=== PATIENT | female | born 1995 | race Caucasian/White ===

== ENCOUNTER 2016-09-09 11:06 | Emergency (ER) | payer BC ==
--- NOTE | 2016-09-09 11:42 | EDM.PDOC ---
ED HPI GENERAL MEDICAL PROBLEM - General Chief Complaint: Back Pain or Injury Stated Complaint: BACK PAIN Time Seen by Provider: 09/09/16 11:25 Source of Information: Reports: Patient, RN Notes Reviewed - History of Present Illness INITIAL COMMENTS - FREE TEXT/NARRATIVE: 20-year-old female comes in with right low back pain. She's been doing a lot of lifting with her 2 jobs. The pain today is much worse. It is worse with motion. She does have some radiation down to the right that out.. No peripheral numbness or tingling. She has been taking some ibuprofen but that has not helped. No recent fall. No voiding symptoms Lower Back Pain Score (Numeric/FACES): 3 - Related Data Allergies Allergy/AdvReac Type Severity Reaction Status Date / Time No Known Allergies Allergy Verified 09/09/16 11:23 Home Meds: Home Meds Hydrocodone/Acetaminophen [[place] 5-325] 1 tab PO Q6HR PRN #10 tablet 09/09/16 [ Rx] Naproxen [Naprosyn] 500 mg PO Q12HR #14 tablet 09/09/16 [Rx] Past Medical History - Past Health History Medical/Surgical History: Denies Medical/Surgical History Social & Family History - Tobacco Use Smoking Status *Q: Never Smoker Second Hand Smoke Exposure: No - Caffeine Use Caffeine Use: Reports: Coffee, Soda - Recreational Drug Use Recreational Drug Use: No ED ROS GENERAL - Review of Systems Review Of Systems: See Below Constitutional: Denies: Fever, Chills, Diaphoresis HEENT: Reports: No Symptoms Respiratory: Denies: Shortness of Breath Cardiovascular: Denies: Chest Pain GI/Abdominal: Denies: Abdominal Pain, Nausea, Vomiting : Reports: No Symptoms Musculoskeletal: Reports: Back Pain Skin: Reports: No Symptoms ED EXAM,LOWER BACK PAIN/INJURY - Physical Exam Exam: See Below General Appearance: Alert, Moderate Distress Throat/Mouth: Normal Inspection Head: Atraumatic. No: Facial Swelling Neck: Supple, Full Range of Motion Respiratory/Chest: No Respiratory Distress, Lungs Clear Cardiovascular: Regular Rate, Rhythm GI/Abdominal: Non-Tender Back Exam: Paraspinal Tenderness. No: CVA Tenderness (L), CVA Tenderness (R) Extremities: Normal Inspection, Normal Range of Motion (Right low back) Neurological: Alert, No Motor/Sensory Deficits, Oriented x 3 Skin Exam: Warm, Dry, Normal Color Course - Vital Signs Last Recorded V/S: Last Vital Signs Temp 97.7 F 09/09/16 11:19 Pulse 70 09/09/16 11:19 Resp 18 09/09/16 11:19 BP 140/86 09/09/16 11:19 Pulse Ox 99 09/09/16 11:19 Departure - Departure Time of Disposition: 11:38 Disposition: Home, Self-Care 01 Condition: Fair Clinical Impression: Low back strain Qualifiers: Encounter type: initial encounter Qualified Code(s): S39.012A - Strain of muscle, fascia and tendon of lower back, initial encounter - Discharge Information Prescriptions: Hydrocodone/Acetaminophen [[place] 5-325] 1 tab PO Q6HR PRN #10 tablet PRN Reason: Pain Naproxen [Naprosyn] 500 mg PO Q12HR #14 tablet Referrals: PCP,None [Primary Care Provider] - Forms: ED Department Discharge, Return to Work/School Form Additional Instructions: rest back, no lifting more than 20 pounds recommended for the next 5 days, alternate ice and heat as needed, Naprosyn 500 mg twice daily, Tylenol in between doses up to 3 times daily for extra pain relief or hydrocodone if needed for severe pain, do not take Tylenol and hydrocodone at the same time, follow-up clinic if not much better within 3-4 days as expected
== END 2016-09-09 11:48 | disposition home or self-care (01) ==
LOC: JD.ED 11:06
CPT/HCPCS: 99283

== ENCOUNTER 2017-06-27 06:59 | Inpatient (IN) | payer BC ==
[2017-06-27] MEDS ORDERED: Citric Acid/Sodium Citrate Solution 30 ML Cup PO ONE (09:06)
[2017-06-27] MEDS ORDERED: Metoclopramide 10 MG/2 ML SDV IVPUSH ONE (09:06)
[2017-06-27] MEDS ORDERED: Sodium Chloride 0.9% 10 ML Syringe FLUSH PRN (09:06)
[2017-06-27] MEDS ORDERED: ceFAZolin 2 GM in Premix Bag 1 BAG IV ONE (09:06)
[2017-06-27] MEDS ORDERED: Lactated Ringers 1,000 ML IV SCH (09:15)
--- NOTE | 2017-06-27 09:26 | PCM.LDHP ---
L&D History of Present Illness - General Date of Service: 06/27/17 Admit Problem/Dx: Patient Status Order with Admit Dx/Problem 06/27/17 09:07 Patient Status [ADT] Routine Admission Diagnosis/Problem Admission Diagnosis/Problem complications 06/27/17 09:13 39-6/7 week intrauterine , breech presentation, large pelvic cysts 2 Source of Information: Patient History Limitations: Reports: No Limitations - History of Present Illness Introduction:: Patient is a 21-year-old 1 para 0 white female who is seen in labor and delivery for induction of labor but is found to have a breech presenting baby. Ultrasound confirms head in the right upper quadrant with buttocks and left lower quadrant. Difficult to assess whether it is a sheila breech or a double footling breech. The patient is noted to have 2 very large cysts in the 16-17 cm size felt to originate in the pelvis and of been present throughout the . They appear simple and benign in nature. The intention was for her to be induced this a.m. but because of the breech presentation discussion is held with patient as to proceeding with a primary lower uterine segment transverse section through Pfannenstiel skin incision under spinal block. We will approach the cysts as indicated by their appearance at the time with possible drainage or surgical excision of the cysts and/or unilateral ovary or ovaries. The procedure, risks, benefits, alternatives of care and follow-up were discussed in detail patient. She appears to understand and wishes to proceed. Consent signed FIBER ANALYST history: 1 para 0. GRICELDA is 06/28/2017 is based upon an early ultrasound done on 12/01/2016 at 10 weeks gestational age. She has had at least for other ultrasounds which is supported by first ultrasound dating. Her course is actually been very unremarkable considering the size of the cysts. They have been relatively asymptomatic. The initial plan was to evaluate cysts and treat after the was finished. Her weight gain has been from approximately 285-318 pounds. Vital signs stable throughout the course. The cysts have been found to be stable on multiple evaluations. Laboratory testing in include a blood type A+. Antibody screen is negative. Hemoglobin is 13.0 and platelets were 303,000 on first visit. Palpitations immunity. RPR is nonreactive. Hepatitis B surface antigen and HIV assays were both negative. GC assay was negative. Chlamydia was positive for an patient and her partner were both treated with a negative test of cure. Her group B strep screen is negative. Her second trimester labs included a hemoglobin which is normal at 12.3 g deciliter and platelets normal at 254,000. Her 1 hour GTT was 91. Allergies: None medications: None Past medical history: Unremarkable. Family history: 2 sisters and 2 brothers are alive and well. Mother is age 55 and well with the exception of some osteoarthritis. Father is 55 and has history of diabetes, hyperlipidemia, hypertension and a history of an PR. Maternal grandmother is secondary to melanoma but history of diabetes also. Maternal grandfather secondary to an PR. Paternal grandmother secondary diabetes, had leg amputation from complications. Also had MIs. Paternal grandfather secondary skin cancer Social history: Patient is , lives in [place]. Does not work outside the home. Her is Francine Warren. Denies any [place] alcohol, drugs or tobacco. Review of systems: General patient is feeling fine. No pain noted. Baby's been active Skin negative Cardiovascular: No chest pain or exercise intolerance Respiratory: No shortness of breath or infectious symptoms Breasts: Negative GI: Negative : Changes as described above secondary to and cysts. Musculoskeletal: Negative Neurological: Negative Physical exam: In general the patient is well-developed well-nourished massively obese white female in no acute distress. She is alert and oriented 3 and appears stated age. She is a good historian. Skin is warm and dry without lesions. HEENT, neck and back within normal limits. Breasts are not evaluated. Lungs are clear with good breath sounds in all lung mims. Cardiovascular exam shows regular rate and rhythm without murmurs Abdomen shows fundal height on last evaluation clinic to be consistent with 49 cm Cervical exam shows 2 cm, -4 station and very soft, mid position Extremities and neurological exam shows 1+ pitting edema otherwise unremarkable - Related Data Allergies/Adverse Reactions: Allergies Allergy/AdvReac Type Severity Reaction Status Date / Time No Known Allergies Allergy Verified 09/09/16 11:23 Home Medications: Home Meds Hydrocodone/Acetaminophen [[place] 5-325] 1 tab PO Q6HR PRN #10 tablet 09/09/16 [ Rx] Naproxen [Naprosyn] 500 mg PO Q12HR #14 tablet 09/09/16 [Rx] Past Medical History - Past Health History Medical/Surgical History: Denies Medical/Surgical History Social & Family History - Tobacco Use Smoking Status *Q: Never Smoker Second Hand Smoke Exposure: No - Caffeine Use Caffeine Use: Reports: Coffee, Soda - Recreational Drug Use Recreational Drug Use: No H&P Review of Systems - Review of Systems: Review Of Systems: See Below L&D Exam - Exam Exam: See Below Problem List Initiated/Reviewed/Updated: Yes Orders Last 24hrs: Active Orders 24 hr Category Date Time Status Patient Status [ADT] Routine ADT 06/27/17 09:07 Ordered Communication Order [RC] ROUTINE Care 06/27/17 09:07 Ordered Heart Tones [RC] PER UNIT ROUTINE Care 06/27/17 09:07 Ordered Peripheral IV Care [RC] . DIRECTED Care 06/27/17 09:10 Ordered Procedure Site Prep Instruct [RC] ASDIRECTED Care 06/27/17 09:07 Ordered Verify Patient Consent Obtain [RC] PER UNIT ROUTINE Care 06/27/17 09:07 Ordered Vital Signs [RC] PFP Care 06/27/17 09:07 Ordered CBC WITH AUTO DIFF [HEME] Stat Lab 06/27/17 09:06 Ordered TYPE AND SCREEN [BBK] Routine Lab 06/27/17 09:07 Ordered Citric Acid/Sodium Citrate [Bicitra Solution] Med 06/27/17 09:06 Once 30 ml PO ONETIME ONE Lactated Ringers @ 125 MLS/HR(1000ml) Med 06/27/17 09:15 Ordered Lactated Ringers [Ringers, Lactated] 1,000 ml IV ASDIRECTED Metoclopramide [Reglan] Med 06/27/17 09:06 Once 10 mg IVPUSH ONETIME ONE Sodium Chloride 0.9% [Saline Flush] Med 06/27/17 09:06 Ordered 10 ml FLUSH ASDIRECTED PRN ceFAZolin [Ancef] 2 gm Med 06/27/17 09:06 Ordered Premix Bag 1 bag IV ONETIME Peripheral IV Insertion Adult [OM.PC] Routine Oth 06/27/17 09:07 Ordered Schedule Procedure [COMM] Per Unit Routine Oth 06/27/17 09:07 Ordered Resuscitation Status Routine Resus Stat 06/27/17 09:06 Ordered Assessment/Plan Comment:: Assessment: 1.39 and 6/7 week intrauterine , breech presentation 2. History of very large cysts 2-simple in nature, benign in appearance and asymptomatic present throughout the entire 3. Risk factors for surgery included a history of the pelvic cysts, massive obesity, breech presentation, short stature 4. Rh+ 5. Rubella immune. 6. Undecided as to breast-feeding 7. Group B strep negative Plan: 1. Primary lower uterine segment transverse section and possible excision of, drainage of pelvic cysts, possible ovarian cystectomy or oophorectomy unilateral or bilateral through Pfannenstiel skin incision under regional block discussed in detail with patient.. Procedure, risks, benefits, alternatives of care including attempt at vaginal delivery discussed in detail the patient. She presents to understand and wishes to proceed and have signed consent. 2. DVT prophylaxis SCDs 3. Infection prophylaxis Ancef 3 g IV 4. CBC, type and screen preoperatively. 5. Pediatrics to be in attendance at time section
--- NOTE | 2017-06-27 09:46 | PCM.PREANE ---
Preanesthetic Assessment - Procedure Proposed Procedure: Primairy CSection for Breech presentation - Anesthesia/Transfusion/Family Hx Anesthesia History: No Prior Anesthesia Family History of Anesthesia Reaction: No Transfusion History: No Prior Transfusion(s) Intubation History: Unknown - Review of Systems General: No Symptoms Pulmonary: No Symptoms Cardiovascular: No Symptoms Gastrointestinal: No Symptoms Neurological: No Symptoms Other: Reports: None - Physical Assessment NPO Status Date: 06/27/17 NPO Status Time: 06:30 (PB&J at 0630) Pulse: 96 O2 Sat by Pulse Oximetry: 98 Respiratory Rate: 18 Blood Pressure: 118/73 Temperature: 36.6 C Height: 1.55 m Weight: 146.51 kg ASA Class: 2 Mental Status: Alert & Oriented x3 Airway Class: Mallampati = 3 Dentition: Reports: Normal Dentition Thyro-Mental Finger Breadths: 3 Mouth Opening Finger Breadths: 3 ROM/Head Extension: Full Lungs: Clear to Auscultation, Normal Respiratory Effort Cardiovascular: Regular Rate, Regular Rhythm - Lab Values: Laboratory Last Values WBC 8.96 K/mm3 (3.98-10.04) 06/27/17 07:30 RBC 4.21 M/mm3 (3.98-5.22) 06/27/17 07:30 Hgb 11.8 gm/L (11.2-15.7) 06/27/17 07:30 Hct 35.6 % (34.1-44.9) 06/27/17 07:30 MCV 84.6 fl (79.4-94.8) 06/27/17 07:30 MCH 28.0 pg (25.6-32.2) 06/27/17 07:30 MCHC 33.1 g/dl (32.2-35.5) 06/27/17 07:30 RDW Std Deviation 42.0 fL (36.4-46.3) 06/27/17 07:30 Plt Count 257 K/mm3 (182-369) 06/27/17 07:30 MPV 10.0 fl (9.4-12.3) 06/27/17 07:30 Neut % (Auto) 69.9 % (34.0-71.1) 06/27/17 07:30 Lymph % (Auto) 18.6 % (19.3-51.7) L 06/27/17 07:30 [place] % (Auto) 10.2 % (4.7-12.5) 06/27/17 07:30 Eos % (Auto) 0.7 (0.7-5.8) 06/27/17 07:30 Baso % (Auto) 0.2 % (0.1-1.2) 06/27/17 07:30 Neut # (Auto) 6.26 K/mm3 (1.56-6.13) H 06/27/17 07:30 Lymph # (Auto) 1.67 K/mm3 (1.18-3.74) 06/27/17 07:30 [place]ruff # (Auto) 0.91 K/mm3 (0.24-0.36) H 06/27/17 07:30 Eos # (Auto) 0.06 K/mm3 (0.04-0.36) 06/27/17 07:30 Baso # (Auto) 0.02 K/mm3 (0.01-0.08) 06/27/17 07:30 - Allergies Allergies/Adverse Reactions: Allergies Allergy/AdvReac Type Severity Reaction Status Date / Time No Known Allergies Allergy Verified 09/09/16 11:23 - Blood Blood Available: No Product(s) Available: None - Anesthesia Plan Pre-Op Medication Ordered: None - Acknowledgements Anesthesia Type Planned: Spinal (with duramorph) Pt an Appropriate Candidate for the Planned Anesthesia: Yes Alternatives and Risks of Anesthesia Discussed w Pt/Guardian: Yes Pt/Guardian Understands and Agrees with Anesthesia Plan: Yes PreAnesthesia Questionnaire - Past Health History Medical/Surgical History: Denies Medical/Surgical History - SUBSTANCE USE Smoking Status *Q: Never Smoker Second Hand Smoke Exposure: No Recreational Drug Use History: No - HOME MEDS Home Medications: Home Meds Hydrocodone/Acetaminophen [[place] 5-325] 1 tab PO Q6HR PRN #10 tablet 09/09/16 [ Rx] Naproxen [Naprosyn] 500 mg PO Q12HR #14 tablet 09/09/16 [Rx] - CURRENT (IN HOUSE) MEDS Current Meds: Current Medications Lactated Ringer's (Ringers, Lactated) 1,000 mls @ 125 mls/hr IV ASDIRECTED NOLBERTO Sodium Chloride (Saline Flush) 10 ml FLUSH ASDIRECTED PRN PRN Reason: Keep Vein Open Discontinued Medications Citric Acid/Sodium Citrate (Bicitra Solution) 30 ml PO ONETIME ONE Stop: 06/27/17 09:07 Cefazolin Sodium/Dextrose 2 gm (/ Premix) 50 mls @ 100 mls/hr IV ONETIME ONE Stop: 06/27/17 09:35 Metoclopramide HCl (Reglan) 10 mg IVPUSH ONETIME ONE Stop: 06/27/17 09:07
[2017-06-27] MEDS ORDERED: Oxytocin 10 Units/1 ML SDV ONE (09:59)
[2017-06-27] MEDS ORDERED: Morphine PF 10 MG/10 ML SDV ONE (09:59)
[2017-06-27] MEDS ORDERED: Ondansetron 4 MG/2 ML SDV ONE (09:59)
[2017-06-27] MEDS ORDERED: ceFAZolin 1 GM Vial ONE ×2 (10:00)
[2017-06-27] MEDS ORDERED: Bupivacaine 0.75% 30 ML SDV ONE (10:13)
[2017-06-27] MEDS ORDERED: 50% Dextrose in Water 50 ML SDV ONE (10:15)
[2017-06-27] MEDS ORDERED: Bupivacaine 0.5% 30 ML SDV ONE (10:59)
[2017-06-27] MEDS ORDERED: Lidocaine 1% 2 ML ONE (12:07)
[2017-06-27] MEDS ORDERED: Lactated Ringers 1,000 ML ONE ×3 (12:52)
[2017-06-27] MEDS ORDERED: Phenylephrine/Normal Saline 100 MCG/ML 10 ML Syringe ONE (12:55)
[2017-06-27] MEDS ORDERED: Ketorolac 30 MG/ML SDV ONE (12:55)
[2017-06-27] MEDS ORDERED: diphenhydrAMINE 50 MG/ML SDV IVPUSH PRN ×2 (13:42→14:57)
[2017-06-27] MEDS ORDERED: fentaNYL 100 MCG/2 ML SDV IVPUSH PRN (13:42)
--- NOTE | 2017-06-27 13:44 | PCM.POSTAN ---
POST ANESTHESIA ASSESSMENT - MENTAL STATUS Mental Status: Alert, Oriented - VITAL SIGNS Pulse Rate: 64 SaO2: 98 Resp Rate: 12 Blood Pressure: 110/57 Temperature: 36.6 C - RESPIRATORY Respiratory Status: Respiratory Rate WNL, Airway Patent, O2 Saturation Stable, Supplemental Oxygen - CARDIOVASCULAR CV Status: Pulse Rate WNL, Blood Pressure Stable - GASTROINTESTINAL GI Status: No Symptoms - PAIN Pain Score: 0 - POST OP HYDRATION Hydration Status: Adequate & Stable - OBSERVATIONS Free Text/Narrative:: no anesthesia complications noted
[2017-06-27] MEDS ORDERED: Dextrose 5%-Lactated Ringers 1,000 ML IV SCH (14:57)
[2017-06-27] MEDS ORDERED: Naloxone 0.4 MG/ML SDV IVPUSH PRN (14:57)
[2017-06-27] MEDS ORDERED: Ondansetron 4 MG/2 ML SDV IV PRN (14:57)
[2017-06-27] MEDS ORDERED: Lanolin 100% Cream 7 GM Tube TOP PRN (14:57)
[2017-06-27] MEDS ORDERED: ePHEDrine 50 MG/ML SDV IVPUSH PRN (14:57)
[2017-06-27] MEDS: Prenatal Multivitamin with Calcium/Folic Acid/Iron Tab PO SCH (15:26)
[2017-06-27] MEDS: Simethicone 80 MG Tab.Chew PO SCH ×2 (18:11→21:59)
[2017-06-27] MEDS ORDERED: Ibuprofen 800 MG Tab PO SCH (19:30)
[2017-06-27] MEDS: Docusate Sodium 100 MG Cap PO PRN (21:55)
[2017-06-27] MEDS: Ibuprofen 800 MG Tab PO SCH ×2 (22:55→22:57)
[2017-06-28] MEDS: Ibuprofen 800 MG Tab PO SCH ×3 (06:30→22:07)
--- NOTE | 2017-06-28 06:56 | PCM.SN ---
- Free Text/Narrative Note: Postoperative day one: Patient doing well. Pain under reasonable control. Patient is afebrile, vital signs stable. Lungs are clear with good breath sounds in all lung mims Cardiovascular exam shows regular rate and rhythm. Abdomen is obese, soft, nontender. Incision is intact, recently dry. It is intact. Legs essentially nontender with minimal edema Assessment: Postoperative day one the recovery Plan: Increase diet, activity, DC IV, continue SCDs while in bed, CBC today is within normal limits for post operative..
--- NOTE | 2017-06-28 09:10 | PCM48HPAN ---
Post Anesthesia Note - EVALUATION WITHIN 48HRS OF ANESTHETIC Vital Signs in Normal Range: Yes Patient Participated in Evaluation: Yes Respiratory Function Stable: Yes Airway Patent: Yes Cardiovascular Function Stable: Yes Hydration Status Stable: Yes Pain Control Satisfactory: Yes Nausea and Vomiting Control Satisfactory: Yes Mental Status Recovered: Yes
--- NOTE | 2017-06-28 10:41 | PCM.OPNOTE ---
- General Post-Op/Procedure Note Date of Surgery/Procedure: 06/27/17 Operative Procedure(s): Primary lower uterine segment transverse section with left salpingo-oophorectomy Findings: Term intrauterine , double footling breech presentation, clear amniotic fluid, massive left ovarian cyst 2 measuring in largest dimension 17 cm. Right ovary was within normal limits, as was the right fallopian tube. Pre Op Diagnosis: 1. 30 967 week intrauterine , double footling breech presentation 2. massive ovarian cysts 2 Post-Op Diagnosis: Same-cysts are of left ovarian etiology Anesthesia Technique: Spinal Other Anesthesia Type: Marcaine 0.5%20 mL total Primary Surgeon: Dexter Spears Secondary Surgeon: Marco A Mathews Anesthesia Provider: Lang Mejia House Servant: Tulio Horta Pathology: Left fallopian tube and ovary Fluid Replacement, Intraop: 3,400 Output, Urine Amount: 30 EBL in mLs: 600 Drain/Tube Comments:: Indwelling bladder catheter Complications: None Condition: Good Free Text/Narrative:: Intake & Output 06/27/17 06/28/17 06/28/17 22:59 06:59 14:59 Intake Total 2950 Output Total 500 2590 Balance 2450 -2590 Surgery duration: 47 minutes Male born 1246 hrs. on 06/28/2006, Apgars 8 and 9, 3130 g, 6 lbs. 14 oz. Procedure: Patient was transferred to the room and placed in a sitting position. Spinal anesthesia was administered. After confirmation of adequate anesthesia patient was placed in a supine position with a wedge under her right side to facilitate left lateral positioning. The patient was prepped and draped in usual fashion and Pizarro catheter was placed . The anesthetic was checked and found to be adequate. 20 mL of Marcaine 0.5% was injected locally in the Pfannenstiel incision site. The Pfannenstiel skin incision was then made carried down to skin subcutaneous and fascial layers. The fascia was then undermined superiorly and inferiorly to allow for adequate operating room the recti muscles midline and preperitoneal fat was bluntly dissected. Peritoneal cavity was entered longitudinally. The vesicouterine peritoneum was then incised transversely and bladder flap was developed. Myometrium was incised transversely to the level of the amniotic sac. This incision was extended bilaterally in a blunt fashion. The amniotic sac was then ruptured resulting clear amniotic fluid. A hand is placed in the low uterine segment and the baby's feet was brought forth through the incision. The baby was completely delivered using fundal pressure and complete breech extraction with routine technique. The nose and mouth were bulb suctioned. Baby's cord was clamped x2 cut and baby was handed off to attending avionics electrical engineer Dr Matthews. Placenta was expressed after cord blood was obtained The cervix was assessed and found to be dilated adequately to allow egress of blood. The uterus was closed in 2 layers. Because of the patient's massive obesity and body habitus the uterus was left in the pelvis and the uterine incision was closed. The first layer was a running locked suture of 0 Monocryl, the second layer a running locked vertical mattress suture of 0 Monocryl. [id number] suture was placed at the left incision to control 1 bleeder. Hemostasis confirmed at this time. Patient had been noted to have 2 very large cysts which on evaluation at the time of surgery were noted to be massive uterine cysts arising from the left ovary. They were connected to the uterus via the ovarian ligament and the fallopian tube intimately attached to them. The first cyst was approximate 17 cm in its greatest dimension and was immediately connected at the distal end to a second cyst which was somewhat smaller and approximately 15 cm. These cysts were aligned in series and were then brought out through the abdominal wall incision. The right ovary was noted to be within normal limits as was the right fallopian tube. Decision was made to remove the ovary on the left side along with the distal fallopian tube. 2 Sophie clamps were placed across the fallopian tube/ ovarian ligament/ broad ligament pedicle and the masses were removed intact. There is sent for histologic evaluation hemostasis was confirmed at this time. Sponge instrument needle counts are correct. The lateral gutters were cleared of blood. Once again sponge needle counts are correct. The anterior abdominal wall was closed with a #1 PDS suture from angle to angle. The subcutaneous area was found to be free of any bleeders. interrupted sutures of 3-0 Monocryl were used to reapproximate the subcutaneous layer.Skin was closed with a running subcuticular stitch of 3-0 Monocryl in a vertical mattress suture fashion using a Harris needle. Prineo mesh/glue was then applied to further approximate the incision. It should be noted that patient received 3 g of Ancef preoperatively for infection prophylaxis and had Pitocin infused after delivery of the placenta to facilitate uterine contraction. She also had sequential compression stockings in place for DVT prophylaxis. Patient was discharged from the operating room in satisfactory condition.
[2017-06-28] MEDS: Simethicone 80 MG Tab.Chew PO SCH ×4 (11:13→22:07)
[2017-06-28] MEDS: Acetaminophen/oxyCODONE 325-5 MG Tab PO PRN ×3 (11:14→23:23)
[2017-06-28] MEDS: Prenatal Multivitamin with Calcium/Folic Acid/Iron Tab PO SCH (11:19)
[2017-06-29] MEDS: Acetaminophen/oxyCODONE 325-5 MG Tab PO PRN ×2 (04:37→09:01)
[2017-06-29] MEDS: Docusate Sodium 100 MG Cap PO PRN (04:38)
--- NOTE | 2017-06-29 06:00 | PCM.DCSUM1 ---
Discharge Summary - Hospital Course Free Text/Narrative:: Yanet is a 21-year-old 1 now para 1001 white female who underwent a primary lower uterine segment transverse section on 06/27/2017 for double footling breech presentation. She is 39-6/7 weeks gestational age with an GRICELDA of 06/28/2017. Patient had been noted throughout the from the time of her initial OB ultrasound to have very large cysts which were felt to be pelvic and most probably ovarian in origin. Patient had been scheduled for an induction of labor but was found to have a reach presenting baby. section was decided upon. Decision was to attempt to resolve the pelvic cyst concern at the time section. Patient was advised as to the procedure, risks, benefits, follow-up. She also the consent. Please see operative report for details. She delivered a viable, parker, with Apgars of 8 and 9. Postoperatively patient has done very well. She is ambulating well, she is bottlefeeding. She is voiding without concerns. Incision appears to be healing well, is dry and intact. Desiring discharge home hospital today. - Discharge Data Discharge Date: 06/29/17 Discharge Disposition: Home, Self-Care 01 Condition: Good - Patient Summary/Data Operative Procedure(s) Performed: Primary lower uterine segment transverse section with left salpingo-oophorectomy - Patient Instructions Diet: Regular Diet as Tolerated Activity: As Tolerated (No intercourse or tampons until seen back. No lifting greater than 15 pounds or driving a car 1 week) Driving: Do Not Drive Showering/Bathing: May Shower Wound/Incision Care: Keep Operative Site/Wound Site Clean and Dry Notify Provider of: Fever, Increased Pain, Swelling and Redness, Nausea and/or Vomiting - Discharge Plan Home Medications: Home Meds Acetaminophen/oxyCODONE [Percocet 325-5 MG] 2 tab PO Q4H PRN tablet 06/29/17 [ Rx] Ibuprofen [IJD: Ibuprofen] 800 mg PO Q8H tablet 06/29/17 [Rx] - Discharge Summary/Plan Comment DC Time >30 min.: No Discharge Summary/Plan Comment: Discharge instructions: 1. Discharge home 2. Diet, activity and follow-up discussed with patient. Recommend nursing diet with increased calories and calcium. 3. Precautions given concern increased pain, bleeding, temperature, signs/ symptoms of DVT/PE. 4. Medications per home medication was printed, discussed with and given to the patient. 5. Return to clinic-Dr. Spears[facility] in 2 weeks. Diagnosis: Term -delivered Condition: Good - Patient Data Vitals - Most Recent: Last Vital Signs Temp 36.4 C 06/29/17 04:42 Pulse 72 06/29/17 04:42 Resp 15 06/29/17 04:42 BP 132/90 06/29/17 04:42 Pulse Ox 97 06/29/17 04:42 Weight - Most Recent: 146.51 kg I&O - Last 24 hours: Intake & Output 06/28/17 06/28/17 06/29/17 14:59 22:59 06:59 Intake Total 300 0 3400 Output Total 1100 30 Balance -800 0 3370 Lab Results - Last 24 hrs: Laboratory Results - last 24 hr 06/28/17 Range/Units 06:20 WBC 9.18 (3.98-10.04) K/mm3 RBC 3.97 L (3.98-5.22) M/mm3 Hgb 11.1 L (11.2-15.7) gm/L Hct 34.0 L (34.1-44.9) % MCV 85.6 (79.4-94.8) fl MCH 28.0 (25.6-32.2) pg MCHC 32.6 (32.2-35.5) g/dl RDW Std Deviation 42.9 (36.4-46.3) fL Plt Count 215 (182-369) K/mm3 MPV 9.6 (9.4-12.3) fl Neut % (Auto) 71.9 H (34.0-71.1) % Lymph % (Auto) 17.5 L (19.3-51.7) % [place] % (Auto) 9.6 (4.7-12.5) % Eos % (Auto) 0.4 L (0.7-5.8) Baso % (Auto) 0.2 (0.1-1.2) % Neut # (Auto) 6.59 H (1.56-6.13) K/mm3 Lymph # (Auto) 1.61 (1.18-3.74) K/mm3 [place] # (Auto) 0.88 H (0.24-0.36) K/mm3 Eos # (Auto) 0.04 (0.04-0.36) K/mm3 Baso # (Auto) 0.02 (0.01-0.08) K/mm3 Med Orders - Current: Current Medications Diphenhydramine HCl (Benadryl) 25 mg IVPUSH Q6H PRN PRN Reason: Itching Last Admin: 06/27/17 21:58 Dose: 25 mg Diphenhydramine HCl (Benadryl) 25 mg IVPUSH Q6H PRN PRN Reason: Itching or Nausea Docusate Sodium (Colace) 100 mg PO Q12H PRN PRN Reason: Constipation Last Admin: 06/29/17 04:38 Dose: 100 mg Emollient Ointment (Lansinoh Hpa) 0 gm TOP ASDIRECTED PRN PRN Reason: Sore Nipples Ephedrine Sulfate (Ephedrine Sulfate) 5 mg IVPUSH SEECOMMENT PRN PRN Reason: Other Fentanyl (Sublimaze) 50 mcg IVPUSH Q5M PRN PRN Reason: PAIN Ibuprofen (Motrin) 800 mg PO Q8H [facility] Last Admin: 06/28/17 22:07 Dose: 800 mg Naloxone HCl (Narcan) 0.1 mg IVPUSH SEECOMMENT PRN PRN Reason: Respiratory Depression Ondansetron HCl (Zofran) 4 mg IV Q4H PRN PRN Reason: Nausea/Vomiting Oxycodone/Acetaminophen (Percocet 325-5 Mg) 2 tab PO Q4H PRN PRN Reason: Pain (moderate 4-6) Last Admin: 06/29/17 04:37 Dose: 2 tab Prenat Multivit/[place]/Iron/Folic Ac ( Plus Iron) 1 each PO DAILY [facility] Last Admin: 06/28/17 11:19 Dose: 1 each Simethicone (Simethicone) 160 mg PO QID [facility] Last Admin: 06/28/17 22:07 Dose: 160 mg Discontinued Medications Bupivacaine HCl (Sensorcaine-Mpf 0.75%) Confirm Administered Dose 30 ml .ROUTE .STK-MED ONE Stop: 06/27/17 10:14 Bupivacaine HCl (Marcaine 0.5%) Confirm Administered Dose 30 ml .ROUTE .STK-MED ONE Stop: 06/27/17 11:00 Last Admin: 06/27/17 12:37 Dose: 20 ml Cefazolin Sodium (Ancef) Confirm Administered Dose 2 gm .ROUTE .[facility]-MED ONE Stop: 06/27/17 10:01 Cefazolin Sodium (Ancef) Confirm Administered Dose 1 gm .ROUTE .[facility]-MED ONE Stop: 06/27/17 10:01 Citric Acid/Sodium Citrate (Bicitra Solution) 30 ml PO ONETIME ONE Stop: 06/27/17 09:07 Last Admin: 06/27/17 11:10 Dose: 30 ml Dextrose/Water (Dextrose 50% In Water) Confirm Administered Dose 50 ml .ROUTE .STK-MED ONE Stop: 06/27/17 10:16 Cefazolin Sodium/Dextrose 2 gm (/ Premix) 50 mls @ 100 mls/hr IV ONETIME ONE Stop: 06/27/17 09:35 Last Admin: 06/29/17 01:15 Dose: Not Given Lactated Ringer's (Ringers, Lactated) 1,000 mls @ 125 mls/hr IV ASDIRECTED [facility] Last Infusion: 06/27/17 11:17 Dose: 999 mls/hr Lidocaine HCl (Xylocaine-Mpf 1%) Confirm Administered Dose 2 mls @ as directed .ROUTE .[facility]-MED ONE Stop: 06/27/17 12:08 Lactated Ringer's (Ringers, Lactated) Confirm Administered Dose 1,000 mls @ as directed .ROUTE .[facility]-MED ONE Stop: 06/27/17 12:53 Lactated Ringer's (Ringers, Lactated) Confirm Administered Dose 1,000 mls @ as directed .ROUTE .STK-MED ONE Stop: 06/27/17 12:53 Lactated Ringer's (Ringers, Lactated) Confirm Administered Dose 1,000 mls @ as directed .ROUTE .STK-MED ONE Stop: 06/27/17 12:53 Dextrose/Lactated Ringer's (Dextrose 5%-Lactated Ringers) 1,000 mls @ 125 mls/ hr IV ASDIRECTED [facility] Stop: 06/27/17 22:56 Last Admin: 06/27/17 16:39 Dose: 125 mls/hr Ibuprofen (Motrin) 800 mg PO Q8H [facility] Last Admin: 06/27/17 21:54 Dose: 800 mg Ketorolac Tromethamine (Toradol) Confirm Administered Dose 30 mg .ROUTE .STK- MED ONE Stop: 06/27/17 12:56 Metoclopramide HCl (Reglan) 10 mg IVPUSH ONETIME ONE Stop: 06/27/17 09:07 Last Admin: 06/27/17 11:10 Dose: 10 mg Morphine Sulfate (Duramorph Pf) Confirm Administered Dose 10 mg .ROUTE .STK-MED ONE Stop: 06/27/17 10:00 Ondansetron HCl (Zofran) Confirm Administered Dose 4 mg .ROUTE .STK-MED ONE Stop: 06/27/17 10:00 Oxytocin (Pitocin) Confirm Administered Dose 20 unit .ROUTE .STK-MED ONE Stop: 06/27/17 10:00 Phenylephrine HCl (Phenylephrine In Ns 100 Mcg/Ml) Confirm Administered Dose 1 mg .ROUTE .STK-MED ONE Stop: 06/27/17 12:56 Sodium Chloride (Saline Flush) 10 ml FLUSH ASDIRECTED PRN PRN Reason: Keep Vein Open
[2017-06-29] MEDS: Ibuprofen 800 MG Tab PO SCH (06:16)
[2017-06-29] MEDS: Prenatal Multivitamin with Calcium/Folic Acid/Iron Tab PO SCH (08:56)
[2017-06-29] MEDS: Simethicone 80 MG Tab.Chew PO SCH (08:57)
[2017-06-29 09:11] VITALS: BP 117/89
== END 2017-06-29 12:42 | disposition home or self-care (01) | DRG 540 ==
LOC: JD.OB 06:59 → OBSVTOIN 12:50 → JD.OB 12:50
PROVIDERS: ADMIT Obstetrics & Gynecology; ATTEND Obstetrics & Gynecology
PROC: 10D00Z1 Extraction of Products of Conception, Low, Open Approach (ICD-10-PCS; principal; 2017-06-27)
PROC: 6A550ZT Pheresis of Cord Blood Stem Cells, Single (ICD-10-PCS; 2017-06-27)
PROC: 0UT10ZZ Resection of Left Ovary, Open Approach (ICD-10-PCS; 2017-06-27)
PROC: 0UB60ZZ Excision of Left Fallopian Tube, Open Approach (ICD-10-PCS; 2017-06-27)
DX: O32.8XX0 Maternal care for other malpresentation of fetus, not applicable or unspecified (principal); O34.83 Maternal care for other abnormalities of pelvic organs, third trimester; O99.214 Obesity complicating childbirth; E66.9 Obesity, unspecified; N83.202 Unspecified ovarian cyst, left side; Z3A.39 39 weeks gestation of pregnancy; Z37.0 Single live birth
CPT/HCPCS: 01961; 36415; 59020; 85025; 86850; 86900; 86901; A9270-GY; J0690; J1200; J1885; J2001; J2270; J2405; J2590; J2765; J7042; J7120